=== PATIENT | female | born 1980 | race African-American/Black ===

== ENCOUNTER → 2019-05-16 | Outpatient (CLI) | payer OTHER ==
[~2019-05-16] VITALS: Ht 167.6 cm; Wt 81.6 kg
[~2019-05-16] MED LIST: SRONYX1 EACH PO
--- NOTE | 2019-05-18 08:07 | P ---
[facility] [place] [address] [place] [address] PROCEDURE REPORT Name: RADHA BBO Room #: REG [facility]#: [id number] Admission: 05/16/19 Attend Phys: Eric Mondragon Discharge: Date of : 76 Report #: [id number] THIS REPORT FOR: //name// CC: Eric Tam MD DATE OF SERVICE: 05/16/2019 PROCEDURE PERFORMED: Colonoscopy. HISTORY OF PRESENT ILLNESS: The patient is a 39-year-old female with a history of colon polyps 3 years ago by a different social service worker, also has a family history of colon cancer in her mother, who was diagnosed in her 50s. The patient reports normal bowel movements. Denies any blood in her stools. DESCRIPTION OF PROCEDURE: The risks and benefits of the procedure were explained to the patient, those risks including, but not limited to bleeding, perforation and the risk of sedation. She understood these risks and gave informed consent. Sedation was given using propofol per anesthesia. Next, a digital rectal exam was initially performed, which was normal. Next, using a standard Olympus colonoscope, the scope was placed in the patient's anus and advanced under direct vision to the cecum. The overall prep was excellent. The cecum and ileocecal valve were normal in appearance. The ascending, transverse, descending and sigmoid colon were all normal. The rectal mucosa was normal. On retroflexion, no abnormalities were noted. The scope was then withdrawn and the procedure terminated. The patient tolerated the procedure well. IMPRESSION: Normal colonoscopy. RECOMMENDATIONS: Repeat colonoscopy in 5 years. Thank you for allowing me to participate in her care. <ELECTRONICALLY SIGNED> By: Eric Jaimes MD 05/18/19 0807 [id number] 1020 Eric Jaimes MD /nt
--- NOTE | 2019-05-18 08:07 | P ---
[facility] [place] [address] [place] [address] PROCEDURE REPORT Name: RADHA BOB [id number] Admission: 05/16/19 Attend Phys: Eric Mondragon Discharge: Date of : 76 Report #: [id number] THIS REPORT FOR: //name// CC: Eric Tam MD DATE OF SERVICE: 05/16/2019 PROCEDURE PERFORMED: Upper endoscopy. HISTORY OF PRESENT ILLNESS: The patient is a 39-year-old female with a history of intermittent heartburn symptoms, taking Rolaids p.r.n., denies any dysphagia. She reports some nausea at times, no emesis. No previous history of upper endoscopy. She also has a family history of colon cancer and polyps that were removed on colonoscopy by a different bench tool maker 3 years ago. Plan is for EGD and colonoscopy today. DESCRIPTION OF PROCEDURE: The risks and benefits of the procedure were explained to the patient, those risks including but not limited to bleeding, perforation and the risk of sedation. She understood these risks and gave informed consent. Sedation was given using propofol per anesthesia. Next, using a standard Olympus upper endoscope, the scope was placed in the patient's mouth and advanced under direct vision through the esophagus, stomach and into the second portion of the duodenum. The larynx was normal in appearance. The esophagus was normal throughout. The GE junction was normal. Overall, the gastric mucosa was normal. The pylorus was normal and patent. The duodenal bulb, first and second portion were all normal. The scope was then withdrawn and the procedure terminated. The patient tolerated the procedure well. IMPRESSION: Normal upper endoscopy. RECOMMENDATIONS: The patient could continue to take Rolaids on a p.r.n. basis, could consider H2 conrad on a daily basis as well. Thank you for allowing me to participate in her care. <ELECTRONICALLY SIGNED> By: Eric Jaimes MD 05/18/19 0807 [id number] 1022 Eric Jaimes MD /nt
== END | disposition home or self-care (01) ==
LOC: GI 07:10
DX: Z12.11 Encounter for screening for malignant neoplasm of colon (principal); Z86.010 Personal history of colon polyps; Z80.0 Family history of malignant neoplasm of digestive organs; R12 Heartburn; R11.0 Nausea; Z98.890 Other specified postprocedural states; Z79.899 Other long term (current) drug therapy
CPT/HCPCS: 62110; 62900

== ENCOUNTER → 2019-12-18 | Outpatient (CLI) | payer OTHER | LOC: RAD 10:54 | PROVIDERS: ATTEND Family Medicine | DX: Z12.31 Encounter for screening mammogram for malignant neoplasm of breast (principal) ==

== ENCOUNTER → 2019-12-27 | Outpatient (CLI) | payer OTHER | LOC: ULTRA 08:59 → BC 08:59 | PROVIDERS: ATTEND Family Medicine | DX: R92.2 Inconclusive mammogram (principal) ==